=== PATIENT | male | born 1955 | race Caucasian/White ===

== ENCOUNTER → 2016-10-05 | Outpatient (CLI) | payer MEDICAID ==
[2016-10-05 13:26] LABS: HEMOGLOBIN 14.5 g/dL (13.5-17.0); HGB HCT DIFFERENCE 2.5; MEAN CORPUSCULAR HEMOGLOBIN 32.8 pg (27.0-33.4); MEAN CORPUSCULAR HGB CONC 35.3 g/dL (32.0-36.0); MEAN CORPUSCULAR VOLUME 93 fl (80-97); RED BLOOD COUNT 4.41 10^6/uL (4.35-5.55); RED CELL DISTRIBUTION WIDTH 13.1 % (11.5-14.0); WHITE BLOOD COUNT 7.4 10^3/uL (4.0-10.5)
[2016-10-06 06:38] LABS: THYROXINE (T4) 4.6 ug/dL (4.5-12.0)
[2016-10-06 07:16] LABS: PHENOBARBITAL (LUMINAL) 24 ug/mL (15-40)
== END ==
LOC: OD 11:49
PROVIDERS: ATTEND Specialist
DX: R56.9 Unspecified convulsions (principal); E55.9 Vitamin D deficiency, unspecified
CPT/HCPCS: 36415; 80156; 80184; 82607; 84436; 84443; 84460; 84480; 85027

== ENCOUNTER 2017-03-05 12:45 | Emergency (ER) | payer MEDICAID ==
--- NOTE | 2017-03-05 13:55 | ER Document Report ---
ED Medical Screen (RME) - General Chief Complaint: Knee Injury Stated Complaint: LEFT KNEE PAIN, SWELLING Time Seen by Provider: 03/05/17 13:42 Notes: 61-year-old male patient reports falling down on his left knee about one half weeks ago. He now has considerable swelling in the prepatellar bursa with erythema and skin peeling. He has edema to the leg foot and ankle. I have greeted and performed a rapid initial assessment of this patient. A comprehensive ED assessment and evaluation of the patient, analysis of test results and completion of the medical decision making process will be conducted by additional ED providers. TRAVEL OUTSIDE OF THE [place] IN LAST 30 DAYS: No - Related Data Allergies/Adverse Reactions: No Known Allergies Allergy (Verified 08/18/13 22:40) Past Medical History - Social History Frequency of alcohol use: None Drug Abuse: None - Past Medical History Cardiac Medical History: Reports: Hx Hypertension Neurological Medical History: Reports: Hx Seizures Renal/ Medical History: Denies: Hx Peritoneal Dialysis GI Medical History: Reports: Hx Gastroesophageal Reflux Disease Psychiatric Medical History: Reports: Hx Dementia - Immunizations Hx Diphtheria, Pertussis, Tetanus Vaccination: Yes Physical Exam - Vital signs Vitals: Temp Pulse Resp BP Pulse Ox 98.8 F 61 18 152/66 H 96 03/05/17 13:22 03/05/17 13:22 03/05/17 13:22 03/05/17 13:22 03/05/17 13:22 Course - Vital Signs Vital signs: Temp Pulse Resp BP Pulse Ox 98.8 F 61 18 152/66 H 96 03/05/17 13:22 03/05/17 13:22 03/05/17 13:22 03/05/17 13:22 03/05/17 13:22
--- NOTE | 2017-03-05 14:11 | ER Document Report ---
ED Extremity Problem, Lower - General Chief Complaint: Knee Injury Stated Complaint: LEFT KNEE PAIN, SWELLING Time Seen by Provider: 03/05/17 13:42 Mode of Arrival: Ambulatory Information source: Patient TRAVEL OUTSIDE OF THE [place] IN LAST 30 DAYS: No - HPI Patient complains to provider of: Pain, Swelling Location: Knee - LEFT Occurred: Other - SLOW DEVELOPMENT SINCE BLUNT IMPACT INJURY 1-1/2 WKS AGO Where: Home Onset/Duration: Gradual Quality of pain: Fullness, Pressure Severity: Mild Context: Direct blow, Fell Recent injury: Yes Associated symptoms: denies: Fever, Sweaty, Unable to bear weight Exacerbated by: Movement - Related Data Allergies/Adverse Reactions: No Known Allergies Allergy (Verified 08/18/13 22:40) Past Medical History - General Information source: Patient - Social History Smoking Status: Former Smoker Frequency of alcohol use: None Drug Abuse: None Lives with: Family Family History: Reviewed & Not Pertinent Patient has suicidal ideation: No Patient has homicidal ideation: No - Past Medical History Cardiac Medical History: Reports: Hx Hypertension Neurological Medical History: Reports: Hx Seizures Renal/ Medical History: Denies: Hx Peritoneal Dialysis GI Medical History: Reports: Hx Gastroesophageal Reflux Disease Psychiatric Medical History: Reports: Hx Dementia Surgical Hx: Negative - Immunizations Hx Diphtheria, Pertussis, Tetanus Vaccination: Yes Review of Systems - Review of Systems Constitutional: No symptoms reported. denies: Chills, Fever EENT: No symptoms reported Cardiovascular: No symptoms reported Respiratory: No symptoms reported Gastrointestinal: No symptoms reported Musculoskeletal: See HPI Neurological/Psychological: No symptoms reported Physical Exam - Vital signs Vitals: Temp Pulse Resp BP Pulse Ox 98.8 F 61 18 152/66 H 96 03/05/17 13:22 03/05/17 13:22 03/05/17 13:22 03/05/17 13:22 03/05/17 13:22 Interpretation: Hypertensive. No: Tachycardic, Tachypneic, Febrile - General General appearance: Appears well, Alert In distress: None - HEENT Head: Normocephalic Eyes: Normal Conjunctiva: Normal Ears: Normal Nasal: Normal Mouth/Lips: Normal Mucous membranes: Normal - Respiratory Respiratory status: No respiratory distress - Cardiovascular Rhythm: Regular - Abdominal Inspection: Normal Distension: No distension - Extremities General upper extremity: Normal inspection General lower extremity: No: Normal inspection - L. KNEE (SEE BELOW) Knee: Other - TENDER, RED, WARM & SWOLLEN OVER PRE-PATELLAR BURSA. No: Drawer' s test instability, Instability, Joint effusion, Popliteal fossa tender, Unable to bear weight - Neurological Neuro grossly intact: Yes Cognition: Normal - Psychological Associated symptoms: Normal affect, Normal mood - Skin Skin Temperature: Warm Skin Moisture: Dry Skin Color: Normal Skin Turgor: Elastic Course - Vital Signs Vital signs: Temp Pulse Resp BP Pulse Ox 98.8 F 61 18 152/66 H 96 03/05/17 13:22 03/05/17 13:22 03/05/17 13:22 03/05/17 13:22 03/05/17 13:22 Procedures - Joint Aspiration Left Knee Time completed: 16:36 Consent obtained: Yes - VERBAL Joint aspiration pre-procedure: Sterile PPE donned, Betadine prep applied, Sterile drapes applied Anesthetic type: 2% Lidocaine mL's of anesthetic: 1 Needle size: 18 Amount/type of drainage: 2 ml Number of attempts: 1 Complications: No Notes: PADDED PRESSURE BANDAGE APPLIED BY PCT. Discharge - Discharge Clinical Impression: Bursitis of left knee Qualifiers: Knee bursitis location: prepatellar bursitis Qualified Code(s): M70.42 - Prepatellar bursitis, left knee Condition: Stable Disposition: HOME, SELF-CARE Instructions: Elevate the Injury ([facility]), Trimethoprim-Sulfa ([facility]), Bursitis ([facility] ), Ibuprofen (General) ([facility]) Additional Instructions: KEEP BANDAGE ON UNTIL MONDAY, MAR. 2, THEN BEGIN CHANGING BANDAGE DAILY. KEEP KNEE ELEVATED MUCH POSSIBLE. AVOID PRESSURE ON KNEE MUCH POSSIBLE. TAKE MEDICATIONS DIRECTED. FOLLOW UP WITH YOUR PRIMARY CARE PROVIDER OR RETURN TO E..R IF PROBLEMS. Prescriptions: Ibuprofen [Motrin 800 mg Tablet] 800 mg PO Q8 PRN #20 tablet PRN Reason: For Pain Sulfamethoxazole/Trimethoprim [Sulfamethoxazole-Tmp Ds Tablet] 2 each PO BID # 40 tablet
--- NOTE | 2017-03-05 14:44 | RADIOLOGY REPORT (SQ) ---
EXAM DESCRIPTION: KNEE LEFT 4 VIEW COMPLETED DATE/TIME: 03/05/2017 2:07 pm REASON FOR STUDY: fell on knee, prepatellar bursitis COMPARISON: None. NUMBER OF VIEWS: Four views. TECHNIQUE: AP, lateral, and both oblique radiographic images acquired of the left knee. LIMITATIONS: None. FINDINGS: MINERALIZATION: Normal. BONES: No acute fracture or dislocation. No worrisome bone lesions. Enthesopathy superior inferior patella peer JOINT: No effusion. SOFT TISSUES: Marked prepatellar soft tissue swelling. OTHER: No other significant finding. IMPRESSION: MARKED PREPATELLAR SOFT TISSUE SWELLING COMPATIBLE WITH CONTUSION OR BURSITIS. NO ACUTE OSSEOUS ABNORMALITY. TECHNICAL DOCUMENTATION: JOB ID: [id number] [employer]- All Rights Reserved
[2017-03-05] MEDS ORDERED: LIDOCAINE 2% INJ-PF (20 MG/ML) 10 ML AMPUL INFIL ONE (14:48)
[2017-03-05 17:20] LABS: CALCIUM PYROPHOSPHATE CRYSTALS NONE OBSERVED; MONOSODIUM URATE CRYSTALS NONE OBSERVED; OTHER CRYSTALS NONE OBSERVED
[2017-03-05] MEDS ORDERED: SULFAMETHOXAZOLE/TRIMETHOPRIM 800-160 MG TABLET PO ONE (18:01)
[2017-03-05] MEDS ORDERED: IBUPROFEN 800 MG TABLET PO ONE (18:01)
[2017-03-05 18:42] VITALS: BP 172/72
== END 2017-03-05 18:45 | disposition home or self-care (01) ==
LOC: ER 12:45
PROC: 0MJY3ZZ Inspection of Lower Bursa and Ligament, Percutaneous Approach (ICD-10-PCS; principal; 2017-03-05)
DX: M70.42 Prepatellar bursitis, left knee (principal); S89.92XA Unspecified injury of left lower leg, initial encounter; M25.562 Pain in left knee; M79.89 Other specified soft tissue disorders; Z87.891 Personal history of nicotine dependence; X58.XXXA Exposure to other specified factors, initial encounter
CPT/HCPCS: 99284; 87205; 87070; 89060; 87075; 73562; 20610; J3490 ×2; 87077

== ENCOUNTER 2017-08-21 16:13 | Emergency (ER) | payer MEDICAID ==
[2017-08-21 17:49] LABS: ABSOLUTE EOSINOPHILS # (AUTO) 0.2 10^3/uL (0.0-0.6); ABSOLUTE LYMPHOCYTES (AUTO) 1.2 10^3/uL (0.5-4.7); ABSOLUTE MONOCYTES (AUTO) 0.7 10^3/uL (0.1-1.4); ABSOLUTE NEUT (AUTO) 6.6 10^3/uL (1.7-8.2); BASOPHILS % (AUTO) 0.5 % (0-2); HEMOGLOBIN 15.2 g/dL (13.5-17.0); LYMPHOCYTES % (AUTO) 14.2 % (13-45); MEAN CORPUSCULAR HEMOGLOBIN 32.1 pg (27.0-33.4); MEAN CORPUSCULAR HGB CONC 35.2 g/dL (32.0-36.0); MEAN CORPUSCULAR VOLUME 91 fl (80-97); MONOCYTES % (AUTO) 7.6 % (3-13); PLATELET COUNT 193 10^3/uL (150-450); RED BLOOD COUNT 4.73 10^6/uL (4.35-5.55); RED CELL DISTRIBUTION WIDTH 13.5 % (11.5-14.0); SEGMENTED NEUTROPHILS % (AUTO) 75.7 % (42-78); TOTAL CELLS COUNTED % (AUTO) 100 %; WHITE BLOOD COUNT 8.7 10^3/uL (4.0-10.5)
[2017-08-21 18:08] LABS: ALANINE AMINOTRANSFERASE 59 U/L (21-72); ALBUMIN 4.8 g/dL (3.5-5.0); ALKALINE PHOSPHATASE 64 U/L (38-126); ANION GAP 12 (5-19); ASPARTATE AMINO TRANSFERASE 60 U/L (17-59); BILIRUBIN,DIRECT 0.3 mg/dL (0.0-0.4); BILIRUBIN,TOTAL 0.3 mg/dL (0.2-1.3); BLOOD UREA NITROGEN 16 mg/dL (7-20); CALCIUM 9.9 mg/dL (8.4-10.2); CARBON DIOXIDE 28 mmol/L (22-30); CHLORIDE 102 mmol/L (98-107); GLUCOSE 129 mg/dL (75-110); POTASSIUM 4.8 mmol/L (3.6-5.0); SODIUM 141.8 mmol/L (137-145); TOTAL PROTEIN 8.7 g/dL (6.3-8.2)
[2017-08-21] MEDS ORDERED: PENICILLIN V POTASSIUM 500 MG TABLET PO ONE (18:57)
--- NOTE | 2017-08-21 19:01 | ER Document Report ---
ED General - General Chief Complaint: Facial Swelling Stated Complaint: RIGHT FACIAL SWELLING Time Seen by Provider: 08/21/17 17:50 Mode of Arrival: Medic Information source: Patient, [facility] Records, Outside Facility Records Cannot obtain history due to: Dementia Notes: 62-year-old male with dementia presents from [facility] due to concern for facial swelling and right ear discharge. Patient is alert and oriented 2. He is a poor historian and states he is not sure why he is in the hospital today. He has no physical complaints at this time. TRAVEL OUTSIDE OF THE [place] IN LAST 30 DAYS: No - Related Data Allergies/Adverse Reactions: No Known Allergies Allergy (Verified 08/18/13 22:40) Past Medical History - General Information source: Patient, [facility] Records, Outside Facility Records Cannot obtain history due to: Dementia - Social History Smoking Status: Unknown if Ever Smoked Chew tobacco use (# tins/day): No Frequency of alcohol use: None Drug Abuse: None Family History: Reviewed & Not Pertinent Patient has suicidal ideation: No Patient has homicidal ideation: No - Past Medical History Cardiac Medical History: Reports: Hx Hypertension Neurological Medical History: Reports: Hx Seizures Renal/ Medical History: Denies: Hx Peritoneal Dialysis GI Medical History: Reports: Hx Gastroesophageal Reflux Disease Psychiatric Medical History: Reports: Hx Dementia - Immunizations Hx Diphtheria, Pertussis, Tetanus Vaccination: Yes Review of Systems - Review of Systems Notes: REVIEW OF SYSTEMS: CONSTITUTIONAL : Denies fever, chills, or sweats. Denies recent illness. Denies weight loss, recent hospitalizations. EENT: Denies visual changes, eye pain. Denies nasal or sinus congestion or discharge. Denies sore throat, oral lesions, difficulty swallowing. CARDIOVASCULAR: Denies chest pain. Denies palpitations. Denies lower extremity edema. RESPIRATORY: Denies cough, cold, or chest congestion. Denies shortness of breath, wheezing. GASTROINTESTINAL: Denies abdominal pain or distention. Denies nausea, vomiting , or diarrhea. Denies blood in vomitus, stools, or per rectum. Denies black, tarry stools. Denies constipation. GENITOURINARY: Denies difficulty urinating, painful urination, frequency, blood in urine, or vaginal discharge. MUSCULOSKELETAL: Denies back or neck pain or stiffness. Denies joint pain or swelling. SKIN: Denies rash, lesions or sores. HEMATOLOGIC : Denies easy bruising or bleeding. LYMPHATIC: Denies swollen glands. NEUROLOGICAL: Denies confusion or altered mental status. Denies passing out or loss of consciousness. Denies dizziness or lightheadedness. Denies headache. Denies weakness or paralysis. Denies problems difficulty with ambulation, slurred speech. Denies sensory loss, numbness, or tingling. Denies seizures. PSYCHIATRIC: Denies anxiety or stress. Denies depression, suicidal ideation, or homicidal ideation. Denies visual or auditory hallucinations. Physical Exam - Vital signs Vitals: Temp Pulse Resp BP Pulse Ox 98.6 F 70 20 209/78 H 95 08/21/17 16:30 08/21/17 16:30 08/21/17 16:30 08/21/17 16:30 08/21/17 16:30 - Notes Notes: PHYSICAL EXAMINATION: GENERAL: Well-appearing, well-nourished and in no acute distress. HEAD: Atraumatic, normocephalic. EYES: Pupils equal round and reactive to light, extraocular movements intact, sclera anicteric, conjunctiva are normal. ENT: Nares patent, oropharynx clear without exudates. Right TM, purulent. NECK: Normal range of motion, supple without lymphadenopathy LUNGS: Breath sounds clear to auscultation bilaterally and equal. No wheezes rales or rhonchi. HEART: Regular rate and rhythm without murmurs ABDOMEN: Soft, nontender, nondistended abdomen. No guarding, no rebound. No masses appreciated. Musculoskeletal: Normal range of motion, no pitting or edema. No cyanosis. NEUROLOGICAL: Cranial nerves grossly intact. Normal speech, normal gait. Normal sensory, motor exams PSYCH: Normal mood, normal affect. SKIN: Warm, Dry, normal turgor, no rashes or lesions noted. Course - Re-evaluation Re-evalutation: 08/22/17 23:29 62-year-old male presents via EMS from [facility] with concern for facial swelling ear drainage. Upon my exam patient is alert, awake and oriented 2. He is unclear of events leading up to his hospitalizations. He is in no acute distress. Vital signs stable. Exam significant for a right TM with bulging, erythema and swelling of the external canal.. Patient provided the opportunity to ask questions, and express concerns. Discharge instructions discussed. Patient is agreeable with discharge home. Return indications explained and discussed with the patient who displays understanding. Patient encouraged to return to the emergency department immediately with any concerns. Patient was given ofloxacin eardrops and Penicillin VK - Vital Signs Vital signs: Temp Pulse Resp BP Pulse Ox 98.1 F 64 18 178/77 H 97 08/21/17 19:41 08/21/17 19:41 08/21/17 19:41 08/21/17 19:41 08/21/17 19:41 - Laboratory Result Diagrams: 08/21/17 17:38 08/21/17 17:38 Laboratory results interpreted by me: 08/21/17 17:38 Glucose 129 H AST 60 H Total Protein 8.7 H Discharge - Discharge Clinical Impression: Facial swelling Right otitis externa Qualifiers: Otitis externa type: unspecified type Chronicity: chronic Qualified Code(s): H60.61 - Unspecified chronic otitis externa, right ear Condition: Good Disposition: HOME, SELF-CARE Instructions: Dental Infection or Abscess ([facility]), Otitis Externa ([facility]) Additional Instructions: Follow up with your physician tomorrow for further care or return to the ED IMMEDIATELY if symptoms worsen or new concerns occur. If you cannot afford to follow up with your primary care physician a list of low cost clinics have been provided at the end of your discharge papers as well. Prescriptions: Ofloxacin [Floxin] 10 drop OT DAILY #100 drops Penicillin V Potassium [Penicillin Vk 500 mg Tablet] 500 mg PO BID #20 tablet
[2017-08-21 19:49] VITALS: BP 178/77
== END 2017-08-21 20:00 | disposition home or self-care (01) ==
LOC: ER 16:13
DX: H60.61 Unspecified chronic otitis externa, right ear (principal); R22.0 Localized swelling, mass and lump, head; F03.90 Unspecified dementia, unspecified severity, without behavioral disturbance, psychotic disturbance, mood disturbance, and anxiety; I10 Essential (primary) hypertension
CPT/HCPCS: 99284; 36415; 85025; 80053; J3490